=== PATIENT | female | born 1940 | race Caucasian/White ===

== ENCOUNTER → 2016-06-15 | Outpatient (CLI) | payer OTHER ==
[~2016-06-15] MED LIST: CHOL100027 PO; FAMO20TA11 PO; HYDR25TA4 PO; LEVO75TA PO; LISI40TA PO; MOME50SP5 NAE; MULTTAB58 PO; NAPR1CAP12 PO
--- NOTE | 2016-06-15 15:37 | MAMMOGRAPHY REPORT ---
BILATERAL DIGITAL SCREENING MAMMOGRAM WITH CAD: 06/15/2016 CLINICAL HISTORY: Routine screening. Patient has no complaints. TECHNIQUE: Bilateral CC and MLO views were obtained. Current study was also evaluated with a Comput er Aided Detection (CAD) system. COMPARISON: Comparison is made to exams dated: 06/13/2015 mammogram, 06/12/2014 mammogram, 11/03/2012 ma mmogram - [facility], 10/15/2008, 10/22/2009 mammogram, and 10/28/2010 mammogram - [facility]. BREAST COMPOSITION: The tissue of both breasts is heterogeneously dense, which may obscure small ma sses. FINDINGS: There is a stable metallic biopsy marker in the upper outer middle one third of the right breast. Scattered benign coarse calcifications and stable grouped punctate microcalcifications in t he medial right breast. No new suspicious mass, architectural distortion or cluster of microcalcifi cations is seen. IMPRESSION: ACR BI-RADS CATEGORY 1: NEGATIVE There is no mammographic evidence of malignancy. A 1 year screening mammogram is recommended. The p atient will receive written notification of the results. Approximately 10% of breast cancers are not detected with mammography. A negative mammographic repor t should not delay biopsy if a clinically suggestive mass is present. Naima Munoz M.D. ay/:06/15/2016 15:25:10 Risk And Compliance Analytics Director: Marian Troncoso RT(R)(M), [facility] letter sent: Normal 1/2 BI-RADS Code: ACR BI-RADS Category 1: Negative
== END | disposition home or self-care (01) ==
LOC: C.MAMM 14:49
PROVIDERS: ATTEND Internal Medicine
DX: Z12.31 Encounter for screening mammogram for malignant neoplasm of breast (principal)

== ENCOUNTER → 2016-12-18 | Outpatient (CLI) | payer OTHER ==
[2016-12-18 17:21] LABS: ALT/SGPT 26 U/L (12-78); AST/SGOT 17 U/L (15-37); BLOOD UREA NITROGEN 23 mg/dl (7-18); BUN/CREATININE RATIO 23.6 (10-20); CALCIUM 9.3 mg/dl (8.5-10.1); CARBON DIOXIDE 24 mmol/L (21-32); CHLORIDE 110 mmol/L (98-107); CREATININE 0.99 mg/dl (0.60-1.20); GLUCOSE 99 mg/dl (70-99); POTASSIUM 3.8 mmol/L (3.5-5.1); SODIUM 142 mmol/L (136-145)
[2016-12-18 17:32] LABS: ALKALINE PHOSPHATASE 101 U/L (45-117); CHOLESTEROL 204 mg/dl (0-200); CHOLESTEROL/HDL RATIO 2.9; HDL CHOLESTEROL 71 mg/dl; LDL CHOLESTEROL CALCULATED 101 mg/dl; THYROID STIMULATING HORMONE 0.943 uIu/ml (0.300-4.500); TRIGLYCERIDES 160 mg/dl (0-150); VERY LOW DENSITY LIPOPROT CALC 32 mg/dl
== END | disposition home or self-care (01) ==
LOC: C.LABBC 13:39
PROVIDERS: ATTEND Internal Medicine
DX: E55.9 Vitamin D deficiency, unspecified (principal)

== ENCOUNTER → 2017-01-25 | Outpatient (CLI) | payer OTHER | END | disposition home or self-care (01) | LOC: C.MAMM 14:33 | PROVIDERS: ATTEND Internal Medicine | DX: M85.851 Other specified disorders of bone density and structure, right thigh (principal); M85.852 Other specified disorders of bone density and structure, left thigh; E55.9 Vitamin D deficiency, unspecified; R29.890 Loss of height ==

== ENCOUNTER → 2017-06-07 | Outpatient (CLI) | payer OTHER ==
--- NOTE | 2017-06-07 13:59 | DIAGNOSTIC IMAGING REPORT ---
KUB CLINICAL HISTORY: Right flank pain. FINDINGS: 2 AP supine abdominal radiographs are obtained. No prior studies are available for comparison at the time of dictation. There is a nonobstructed abdominal bowel gas pattern noting moderate to severe constipation. No evidence of intraperitoneal free air is seen on these supine views. There are no abnormal abdominal calcifications. Numerous phleboliths are seen in the left hemipelvis. The skeletal structures are osteopenic. Advanced lumbosacral spondylosis and scoliosis is observed. The bony pelvis is intact as imaged. IMPRESSION: Nonobstructed abdominal bowel gas pattern noting moderate to severe constipation. Electronically signed by: Odell Pollock M.D. 06/07/2017 1:57 PM Dictated Date/Time: 06/07/2017 1:56 PM
--- NOTE | 2017-06-07 13:59 | DIAGNOSTIC IMAGING REPORT ---
L-SPINE MIN 4 VIEWS ROUTINE CLINICAL HISTORY: 77 years-old Female presenting with M54.5 Lumbar back pain pain in right lower back.[id number]. TECHNIQUE: Frontal, bilateral oblique, lateral, and coned in lateral views of the lumbar spine were obtained. COMPARISON: None. FINDINGS: Dextroscoliotic curvature of the lumbar spine centered at L3. No pars defect is apparent on radiograph. However, 10 mm of grade 2 anterolisthesis of L4 on L5 noted. Vertebral bodies maintain normal height. Intervertebral disc height loss at L4-5. Osseous neural foraminal narrowing suspected at this level. Sacroiliac joints grossly normal. Sacrum grossly normal. Nonobstructive bowel gas pattern. IMPRESSION: 10 mm of grade 2 anterolisthesis of L4 on L5, may be degenerative in etiology. Suspected osseous neural foraminal narrowing at L4-5. Electronically signed by: Yeison Coles M.D. 06/07/2017 1:58 PM Dictated Date/Time: 06/07/2017 1:56 PM
== END | disposition home or self-care (01) ==
LOC: C.RADBC 13:36
PROVIDERS: ATTEND Family Medicine Adult Medicine
DX: N20.0 Calculus of kidney (principal); M54.5 Low back pain

== ENCOUNTER → 2017-07-22 | Outpatient (CLI) | payer OTHER ==
--- NOTE | 2017-07-22 15:17 | MAMMOGRAPHY REPORT ---
BILATERAL DIGITAL SCREENING MAMMOGRAM TOMOSYNTHESIS WITH CAD: 07/22/2017 CLINICAL HISTORY: Routine screening. TECHNIQUE: Breast tomosynthesis in addition to standard 2D mammography was performed. Current study was also evaluated with a Computer Aided Detection (CAD) system. COMPARISON: Comparison is made to exams dated: 06/15/2016 mammogram, 06/27/2015 mammogram, 06/13/2015 karrie mogram, 06/12/2014 mammogram, 11/03/2012 mammogram, and 11/03/2011 mammogram - [facility]. BREAST COMPOSITION: The tissue of both breasts is heterogeneously dense, which may obscure small mas ses. FINDINGS: No suspicious masses, calcifications, or areas of architectural distortion are noted in ei ther breast. There has been no significant interval change compared to prior exams. A biopsy clip is again noted within the right upper outer quadrant. Bilateral benign-appearing calcifications are no t significantly changed. IMPRESSION: ACR BI-RADS CATEGORY 2: BENIGN There is no mammographic evidence of malignancy. A 1 year screening mammogram is recommended. The pa tient will receive written notification of the results. Approximately 10% of breast cancers are not detected with mammography. A negative mammographic report should not delay biopsy if a clinically suggestive mass is present. Barbara Mccord M.D. ah/:07/22/2017 13:17:27 Spot Sprayer: Jian DE LA TORRE)(M), [facility] letter sent: Normal 1/2 BI-RADS Code: ACR BI-RADS Category 2: Benign
== END | disposition home or self-care (01) ==
LOC: C.MAMM 12:40
PROVIDERS: ATTEND Internal Medicine
DX: Z12.31 Encounter for screening mammogram for malignant neoplasm of breast (principal)

== ENCOUNTER → 2017-08-20 | Outpatient (CLI) | payer OTHER ==
--- NOTE | 2017-08-20 14:59 | DIAGNOSTIC IMAGING REPORT ---
THORACIC SPINE 3 VIEWS ROUTINE HISTORY: 77 years-old Female M54.6 acute mid back pain COMPARISON: Lumbar spine radiographs 06/07/2017, chest radiograph 10/25/2013 TECHNIQUE: 3 views of the thoracic spine FINDINGS: Sigmoidal scoliosis of the thoracolumbar spine with increased thoracic kyphosis. Multilevel at least moderate intervertebral disc space narrowing with spondylitic spurring. No definite acute fracture or subluxation. Degenerative changes of the imaged cervical spine also noted. Atherosclerosis of the aorta. IMPRESSION: No acute fracture or subluxation identified. The above report was generated using voice recognition software. It may contain grammatical, syntax or spelling errors. Electronically signed by: Johnnie Tai M.D. 08/20/2017 2:58 PM Dictated Date/Time: 08/20/2017 2:56 PM
== END | disposition home or self-care (01) ==
LOC: C.RADBC 14:39
PROVIDERS: ATTEND Internal Medicine
DX: M54.6 Pain in thoracic spine (principal)